=== PATIENT | male | born 1995 | race Caucasian/White ===

== ENCOUNTER 2019-12-16 11:44 | Emergency (ER) | payer SELFPAY ==
[~2019-12-16] VITALS: Ht 167.6 cm; Wt 95.3 kg
[2019-12-16 12:00] VITALS: BP 109/66
--- NOTE | 2019-12-16 12:00 | NUR ---
ED Nurse Note: Patient brought in by ambulance from sober living facility due to urinary problem. Patient found standing at bedside, states unable to sit down due to pain, patient unable to void x 1 day, facial grimacing with sweating noted and requesting f/c insertion. Dr. Laureano notified and inserted 16Fr catheter without any problem, bleeding or resistance. Patient stated decreased pain after f/c insertion, draining yellow urine. Last BM was 4 days ago. Reports no N/V, chills or fever, or cough.
[2019-12-16] MEDS ORDERED: TRAMADOL HCL50 MG ORAL (12:52)
[2019-12-16] MEDS ORDERED: GABAPENTIN600 MG ORAL (12:52)
--- NOTE | 2019-12-16 12:54 | NUR ---
ED Nurse Note: Patient sleeping. Dimmed the light.
[2019-12-16] MEDS ORDERED: COLACE100 MG ORAL (13:12)
[2019-12-16] MEDS ORDERED: FLEET ENEMA133 ML RECTAL (13:12)
--- NOTE | 2019-12-16 13:32 | NUR ---
ED Nurse Note: Leg bag applied, draining yellow urine. Instructed patient how to take care of leg bag. Patient verbalized understanding of it.
[2019-12-16 13:59] VITALS: BP 129/87
--- NOTE | 2019-12-16 14:00 | NUR ---
ED Nurse Note: Patient waiting for person from [facility]. Addendum: 12/16/19 at 1451 by LUZ MARIA ED Nurse Note: Patient is cleared to be discharged per Dr. Laureano. Patient awake, alert, oriented x 4. Regular, unlabored breathing noted. D/C instruction given. Patient verbalized understanding of it. ID band removed.
--- NOTE | 2019-12-16 14:18 | NUR ---
ED Nurse Note: Fernando Pike living here. Addendum: 12/16/19 at 1451 by LUZ MARIA Patient ambulated out with steady gait with all his belongings. Patient agreed that he will follow up with PCP within 2 days.
--- NOTE | 2019-12-16 14:32 | Diagnostic Imaging Report ---
Indication: Abdominal pain Technique: Supine view of the abdomen Comparison: none Findings: Unremarkable bowel gas pattern. No masses or unusual calcifications. There is a Perez catheter present. Impression: Negative
--- NOTE | 2019-12-22 15:50 | Emergency Room Report ---
History of Present Illness General Chief Complaint: Constipation Source: Patient Present Illness HPI 24-year-old male presents for evaluation. Brought in by EMS from home. States he has been constipated and has been unable to urinate for the last few days. Denies any abdominal pain. Denies any nausea or vomiting. Denies fevers or chills. Notes history of psych. Takes multiple medications. Also takes n arcotics. No other aggravating relieving factors. Denies any other associated symptoms Allergies: Coded Allergies: METHYLPHENIDATE (Verified Allergy, Unknown, 12/16/19) WARFARIN (Verified Allergy, Unknown, 12/16/19) COVID-19 Screening Contact w/high risk pt: No Experienced COVID-19 symptoms?: No COVID-19 Testing performed [employer]: No Patient History Past Medical History: none Past Surgical History: none Pertinent Family History: none Social History: Denies: smoking, alcohol use, drug use Immunizations: UTD Reviewed Nursing Documentation: PMH: Agreed; PSxH: Agreed Nursing Documentation-PMH Past Medical History: No Stated History Review of Systems All Other Systems: negative except mentioned in HPI Physical Exam Sp02 EP Interpretation: reviewed, normal General Appearance: no apparent distress, alert, GCS 15, non-toxic Head: normocephalic, atraumatic Eyes: bilateral eye normal inspection, bilateral eye PERRL ENT: hearing grossly normal, normal pharynx, no angioedema, normal voice Neck: full range of motion, supple/symm/no masses Respiratory: chest non-tender, lungs clear, normal breath sounds, speaking full sentences Cardiovascular #1: regular rate, rhythm, no edema Cardiovascular #2: 2+ carotid (R), 2+ carotid (L), 2+ radial (R), 2+ radial (L), 2+ dorsalis pedis (R), 2+ dorsalis pedis (L) Gastrointestinal: normal bowel sounds, soft, non-distended, no guarding, no rebound, tenderness Rectal: deferred Genitourinary: normal inspection, no CVA tenderness Musculoskeletal: back normal, normal range of motion, gait/station normal, non- tender Neurologic: alert, motor strength/tone normal, oriented x3, sensory intact, responsive, speech normal Psychiatric: judgement/insight normal, memory normal, mood/affect normal, no suicidal/homicidal ideation Reflexes: 3+ bicep (R), 3+ bicep (L), 3+ tricep (R), 3+ tricep (L), 3+ knee (R), 3+ knee (L) Skin: no rash Lymphatic: no adenopathy Medical Decision Making Diagnostic Impression: Primary Impression: Urinary retention Additional Impression: Constipation Qualified Codes: K59.00 - Constipation, unspecified ER Course Hospital Course 24 yo M presents with constipation, unable to urinate. Differential diagnosis includes-appendicitis, cholecystitis, small bowel obstruction, gastritis, Clinical course Patient placed on stretcher. After initial history and physical I ordered fitch and KUB KUB - copious stool noted Fitch catheter placed and patient had significant urinary output. I discussed findings with patient. Will discharge with stool softeners. Will discharge with Fitch catheter as patient does not want to have it removed with leg bag. States he will follow-up. I will provide referrals. I feel this is a highly complex case requiring extensive working including EKG/Rhythm strip, Xray/CT/US, Blood/urine lab work, repeat exams while in ED, and administration of strong opiates/narcotics for pain control, admission to hospital or close patient follow up. Diagnosis - constipation, urinary retention Stable and discharged to home with Rx enema, colace, fitch catheter + leg bag. instructed on high-fiber diet. Followup with PMD. Return to ED if symptoms recur or worsen Other X-Ray Diagnostic Results Other X-Ray Diagnostic Results : X-Ray ordered: KUB # of Views/Limited Vs Complete: 1 View Indication: Pain EP Interpretation: Yes Interpretation: nonspecific bowel gas, no sbo, other - fecal impaction Impression: Other - fecal impaction Electronically Signed by: Electronically signed by Carlos Mckeon MD Status: improved Disposition: HOME, SELF-CARE Condition: Stable Scripts Na Phos,M-B/Na Phos,Di-Ba* (FLEET ENEMA*) 133 Ml Enema 133 ML RECTAL DAILY, #133 ML 0 Refills Prov: Carlos Mckeon MD 12/16/19 Docusate Sodium* (COLACE*) 100 Mg Capsule 100 MG ORAL THREE TIMES A DAY, #30 CAP Prov: Carlos Mckeon MD 12/16/19 Referrals: NOT CHOSEN IPA/,REFERRING (PCP) Rory [facility] Patient Instructions: Constipation, Adult, Acute Urinary Retention, Male, [id number] Carlos Mckeon MD Dec 22, 2019 15:50
== END 2019-12-16 13:59 | disposition home or self-care (01) ==
LOC: EDBD 11:44 → EMR 13:07
DX: K59.00 Constipation, unspecified (principal); R33.9 Retention of urine, unspecified; Z88.8 Allergy status to other drugs, medicaments and biological substances
CPT/HCPCS: 51702; 74018; 99284